=== PATIENT | female | born 1970 | race Caucasian/White ===

== ENCOUNTER 2022-07-03 06:16 | Emergency (ER) | payer OTHER ==
[~2022-07-03] VITALS: Ht 152.4 cm; Wt 45.4 kg
--- NOTE | 2022-07-03 06:37 | NUR ---
called for triage. no answer
--- NOTE | 2022-07-03 06:55 | NUR ---
called pt to triage. no response
[2022-07-03] MEDS ORDERED: ONDANSETRON HCL/PF 4 MG/2 ML VIAL IVP ONE (08:00)
[2022-07-03] MEDS ORDERED: KETOROLAC TROMETHAMINE INJ 30 MG/ML VIAL IV ONE (08:00)
[2022-07-03] MEDS ORDERED: IV NS 0.9% 1,000 ML BAG IV ONE (08:00)
--- NOTE | 2022-07-03 08:00 | NUR ---
PATIENT ARRIVED C/C FLANK PAIN. A/O X 3
[2022-07-03] MEDS ORDERED: KETOROLAC TROMETHAMINE 15 MG/ML VIAL ONE (08:02)
[2022-07-03] MEDS ORDERED: ONDANSETRON HCL/PF 4 MG/2 ML VIAL ONE (08:02)
--- NOTE | 2022-07-03 08:20 | NUR ---
BLOOD SAMPLES OBTAINED
[2022-07-03] MEDS ORDERED: MORPHINE SULFATE INJ 4 MG/ML DISP.SYRIN ONE ×2 (08:28→09:23)
[2022-07-03] MEDS ORDERED: MORPHINE SULFATE INJ 2 MG/ML DISP.SYRIN IV ONE ×2 (08:30→09:30)
[2022-07-03 08:48] LABS: BASOPHILS % (AUTO) 0.5 % (0.0-2.0); EOSINOPHILS % (AUTO) 0.9 % (0.0-6.0); HEMATOCRIT 35 % (33-45); HEMOGLOBIN 11.2 g/dL (11.5-14.8); LYMPHOCYTES # (AUTO) 3.6 K/uL (0.8-4.8); MEAN CORPUSCULAR HGB CONC 32 g/dl (31.0-36.0); MEAN CORPUSCULAR VOLUME 84 fL (82-100); MONOCYTES # (AUTO) 0.7 K/uL (0.1-1.30); MONOCYTES % (AUTO) 8.1 % (2.0-12.0); NEUTROPHILS # (AUTO) 4.3 K/uL (1.8-8.9); NEUTROPHILS % (AUTO) 49.5 % (43.0-81.0); PLATELET COUNT (AUTO) 371 K/uL (150-450); RED BLOOD CELL COUNT(AUTO) 4.16 MIL/uL (4.0-5.2); WHITE BLOOD COUNT (AUTO) 8.7 K/uL (4.3-11.0)
--- NOTE | 2022-07-03 09:09 | NUR ---
URINE SAMPLE OBTAINED
[2022-07-03 09:24] LABS: ALBUMIN 3.6 g/dL (3.4-5.0); BILIRUBIN,DIRECT 0.1 mg/dL (0.0-0.2); BILIRUBIN,TOTAL 0.2 mg/dL (0.2-1.0); TOTAL PROTEIN, SERUM 7.7 g/dL (6.4-8.2)
--- NOTE | 2022-07-03 09:53 | NUR ---
IV removed. Catheter intact and site benign. Pressure and 4x4 applied to site. No bleeding noted. Patient left hospital against medical advice. RN and MD explained risks of leaving hospital before being medically cleared x 3, patient again insisted on leaving hospital. Patient and MD signed AMA form.
--- NOTE | 2022-07-03 09:54 | NUR ---
Patient left facility before medication reassessment could be performed.
[2022-07-03 09:55] VITALS: BP 119/80
[2022-07-03 10:27] LABS: BILIRUBIN,URINE NEGATIVE (NEGATIVE); COLOR,URINE YELLOW (YELLOW); LEUKOCYTE ESTERASE ,URINE NEGATIVE (NEGATIVE); NITRITE, URINE NEGATIVE (NEGATIVE); PROTEIN,URINE NEGATIVE (NEGATIVE); UGLUCOSE NEGATIVE (NEGATIVE); UROBILINOGEN,URINE 0.2 EU/dL (0.2)
== END 2022-07-03 09:56 | disposition left against medical advice (07) ==
LOC: ER 06:17
DX: R10.2 Pelvic and perineal pain (principal); F17.200 Nicotine dependence, unspecified, uncomplicated; Z88.0 Allergy status to penicillin; Z60.2 Problems related to living alone
CPT/HCPCS: 99284; 96374; 96361; 96375; 96376; 85025; 87086; 83690; 80076; 84703; 81003; 36415; J2270 ×2; J2405; J7030; J1885

== ENCOUNTER 2024-04-23 05:43 | Emergency (ER) | payer MEDICAID, OTHER ==
[~2024-04-23] VITALS: Ht 152.4 cm; Wt 45.4 kg
[2024-04-23] MEDS ORDERED: KETOROLAC TROMETHAMINE INJ 30 MG/ML VIAL ONE (06:16)
[2024-04-23] MEDS: KETOROLAC TROMETHAMINE 15 MG/ML VIAL IV ONE (06:30)
[2024-04-23] MEDS ORDERED: KETO10TA2 PO (09:26)
[2024-04-23] MEDS ORDERED: TAMS-12 PO (09:26)
[2024-04-23 11:14] VITALS: BP 98/54; TEMP 97.9; O2SAT 97
== END 2024-04-23 11:15 | disposition home or self-care (01) ==
LOC: ER 05:47
DX: N20.0 Calculus of kidney (principal); R10.9 Unspecified abdominal pain; M54.59 Other low back pain; F17.200 Nicotine dependence, unspecified, uncomplicated; Z87.442 Personal history of urinary calculi; Z88.0 Allergy status to penicillin; Z60.2 Problems related to living alone
CPT/HCPCS: 99284; 74176; J1885